=== PATIENT | male | born 1985 | race Caucasian/White ===

== ENCOUNTER 2019-01-28 12:06 | Emergency (ER) | payer SELFPAY ==
[~2019-01-28] VITALS: Ht 170.2 cm; Wt 77.3 kg
[2019-01-28 12:19] VITALS: BP 140/106
[2019-01-28] MEDS ORDERED: LIDOcaine 1% w/epiNEPHrine 1:200,000 30ml vial IM ONE (12:20)
[2019-01-28] MEDS ORDERED: TETanus/Pertussis (Acell)/Diphther VAC/PF (Tdap-Adult) 0.5ml syringe IM ONE (12:20)
[2019-01-28] MEDS ORDERED: HYDROcodone/acetaminophen 10/325mg tab PO ONE (12:20)
--- NOTE | 2019-01-28 13:09 | NUR ---
relieving RN for lunch, public works technician at bedside to irrigate wound to head, pt refusing tetanus and pain med "i hate needles and I don't well with pain medications"
[2019-01-28] MEDS ORDERED: cephalexin 250mg capsule PO ONE (14:15)
[2019-01-28] MEDS ORDERED: CEPH-572 PO (14:37)
[2019-01-28] MEDS ORDERED: ketorolac trometh inj. 60 MG/2 ML VIAL IM ONE (14:50)
[2019-01-28] MEDS ORDERED: ibuprofen tablet 400 MG TABLET PO ONE (14:55)
[2019-01-28] MEDS ORDERED: ibuprofen 200mg tablet PO ONE (15:05)
== END 2019-01-28 15:19 | disposition home or self-care (01) ==
LOC: ER 12:06
DX: S01.01XA Laceration without foreign body of scalp, initial encounter (principal); M54.2 Cervicalgia; F17.200 Nicotine dependence, unspecified, uncomplicated; Z79.899 Other long term (current) drug therapy; W20.8XXA Other cause of strike by thrown, projected or falling object, initial encounter; Y93.89 Activity, other specified; Y92.89 Other specified places as the place of occurrence of the external cause; Y99.8 Other external cause status
CPT/HCPCS: 12005; 70450; 72125; 90715; 99284; J3490; 12011

== ENCOUNTER 2019-02-07 17:32 | Emergency (ER) | payer OTHER ==
[~2019-02-07] VITALS: Ht 170.2 cm; Wt 79.1 kg
[2019-02-07 17:41] VITALS: BP 135/91
--- NOTE | 2019-02-07 17:59 | NUR ---
PATIENT AMBULATORY TO ER FAST TRACK #A WITH C/O NEEDING SUTURES REMOVED FROM [facility].
--- NOTE | 2019-02-07 18:00 | NUR ---
SUTURES REMOVED PER PROVIDER. WOUND DRY AND INTACT.
== END 2019-02-07 18:12 | disposition home or self-care (01) ==
LOC: ER 17:33
DX: S01.01XD Laceration without foreign body of scalp, subsequent encounter (principal); W20.8XXD Other cause of strike by thrown, projected or falling object, subsequent encounter
CPT/HCPCS: 99281

== ENCOUNTER 2019-10-03 09:14 | Emergency (ER) | payer BC ==
[~2019-10-03] VITALS: Ht 170.2 cm; Wt 79.5 kg
[2019-10-03 09:24] VITALS: BP 132/84
[2019-10-03] MEDS ORDERED: proparacaine 0.5% ophthalmic drops 15ml LEFTEYE ONE (09:35)
[2019-10-03] MEDS ORDERED: erythromycin ophthalmic ointment 1gm tube RIGHTEYE ONE (09:45)
[2019-10-03] MEDS ORDERED: ERYT1OIN6 RIGHTEYE (09:52)
== END 2019-10-03 10:05 | disposition home or self-care (01) ==
LOC: ER 09:15
DX: S05.01XA Injury of conjunctiva and corneal abrasion without foreign body, right eye, initial encounter (principal); W22.8XXA Striking against or struck by other objects, initial encounter; Y93.89 Activity, other specified; Y92.89 Other specified places as the place of occurrence of the external cause; Y99.9 Unspecified external cause status
CPT/HCPCS: 99283

== ENCOUNTER 2020-08-09 18:28 | Emergency (ER) | payer BC ==
[~2020-08-09] VITALS: Ht 170.2 cm; Wt 84.1 kg
[2020-08-09 18:41] VITALS: BP 156/97
[2020-08-09] MEDS ORDERED: proparacaine 0.5% ophthalmic drops 15ml EACHEYE ONE (20:00)
[2020-08-09] MEDS ORDERED: erythromycin ophthalmic ointment 1gm tube LEFTEYE ONE (20:55)
== END 2020-08-09 21:19 | disposition home or self-care (01) ==
LOC: ER 18:29
DX: S05.02XA Injury of conjunctiva and corneal abrasion without foreign body, left eye, initial encounter (principal); X58.XXXA Exposure to other specified factors, initial encounter; Y93.89 Activity, other specified; Y92.89 Other specified places as the place of occurrence of the external cause; Y99.8 Other external cause status
CPT/HCPCS: 99283

== ENCOUNTER 2021-08-18 07:02 | Emergency (ER) | payer BC, MEDICAID ==
[~2021-08-18] VITALS: Ht 172.7 cm; Wt 79.5 kg
[2021-08-18 07:06] VITALS: BP 130/79
[2021-08-18] MEDS ORDERED: proparacaine 0.5% ophthalmic drops 15ml EACHEYE ONE (08:30)
[2021-08-18] MEDS ORDERED: TOBR5DRO2 LEFTEYE (08:32)
== END 2021-08-18 08:53 | disposition home or self-care (01) ==
LOC: ER 07:03
DX: S05.02XA Injury of conjunctiva and corneal abrasion without foreign body, left eye, initial encounter (principal); Z72.89 Other problems related to lifestyle; Z79.2 Long term (current) use of antibiotics; X58.XXXA Exposure to other specified factors, initial encounter; Y93.9 Activity, unspecified; Y92.89 Other specified places as the place of occurrence of the external cause; Y99.8 Other external cause status
CPT/HCPCS: 99283

== ENCOUNTER 2023-09-08 06:33 | Emergency (ER) | payer MEDICAID ==
[~2023-09-08] VITALS: Ht 170.2 cm; Wt 71.2 kg
[~2023-09-08 06:33] MED LIST: TOBR5DRO2 LEFTEYE
[2023-09-08] MEDS ORDERED: ibuprofen tablet 400 MG TABLET PO ONE (07:50)
[2023-09-08] MEDS ORDERED: CYCL-1 PO (07:50)
[2023-09-08] MEDS ORDERED: IBUP-1985 PO (07:50)
[2023-09-08 08:04] VITALS: BP 134/78; PULSE 86; RESP 18; TEMP 97.5; O2SAT 98
== END 2023-09-08 08:17 | disposition home or self-care (01) ==
LOC: ER 06:33
DX: M54.59 Other low back pain (principal); W19.XXXA Unspecified fall, initial encounter; Y93.89 Activity, other specified; Y92.89 Other specified places as the place of occurrence of the external cause; Y99.8 Other external cause status
CPT/HCPCS: 99284

== ENCOUNTER 2023-10-18 10:22 | Emergency (ER) | payer MEDICAID ==
[~2023-10-18] VITALS: Ht 170.2 cm; Wt 77.3 kg
[~2023-10-18 10:22] MED LIST changes: +CYCL-1 PO; +IBUP-1985 PO
[2023-10-18] MEDS ORDERED: LIDOcaine 1% W/epiNEPHrine 1:100,000 20ml vial SQ ONE (10:45)
[2023-10-18] MEDS ORDERED: LIDOCAINE 1%/EPI 1:100,000 inj. 10 ML multi-dose vial SQ ONE (10:55)
[2023-10-18 12:42] VITALS: BP 124/93; PULSE 74; RESP 16; TEMP 98; O2SAT 98
[2023-10-18 12:59] LABS: HIV ANTIBODY 1&2 RAPID NON-REACTIVE (Neg)
== END 2023-10-18 12:44 | disposition home or self-care (01) ==
LOC: ER 10:23
DX: S61.412A Laceration without foreign body of left hand, initial encounter (principal); X58.XXXA Exposure to other specified factors, initial encounter; Y93.89 Activity, other specified; Y92.89 Other specified places as the place of occurrence of the external cause; Y99.8 Other external cause status
CPT/HCPCS: 12002; 36415; 86703; 99283; A6449

== ENCOUNTER 2025-02-10 16:11 | Emergency (ER) | payer MEDICAID ==
[~2025-02-10] VITALS: Ht 170.2 cm; Wt 77.8 kg
--- NOTE | 2025-02-10 17:08 | RADIOLOGY REPORT ---
CLINICAL INDICATION: HAND PAIN TECHNIQUE: Left DI HAND, COMPLETE (3VW MIN) Comparison: None FINDINGS/IMPRESSION: : There is no evidence of acute fracture or dislocation. Soft tissues are unremarkable.
[2025-02-10] MEDS: LIDOcaine 1% W/epiNEPHrine 1:100,000 20ml vial SQ ONE (18:43)
--- NOTE | 2025-02-10 18:53 | Physician Documentation ---
History of Present Illness ~ Chief Complaint: Laceration Stated Complaint: LAC ON LEFT HAND Time Seen by MD: 18:09 Primary Medical Doctor: MAIKOL HESS HPI Presents with left hand pain after her injuring his posterior aspect of his thumb and index finger on the left side when he put his finger in a port a cool of operative cooler causing a laceration. Tetanus Within 5 Years: Yes (JANUARY 2019) Medication Reconciliation Allergies: Coded Allergies: No Known Allergies (Unverified , 10/18/23) Scheduled Tobramycin Sulfate/Dexameth (Tobradex Eye Drops), 1 DROP LEFTEYE Q6H Scheduled PRN Cyclobenzaprine* (Cyclobenzaprine*), 1 TABLET PO Q8H PRN for muscle spasms Ibuprofen (Ibuprofen), 1 TAB PO Q6H PRN for pain Past Medical History Past Medical History: No Pertinent History Past Surgical History: noncontributory Alcohol Use: Occasionally Drug Use: none Lives with: Spouse Lives In: Home Occupation: employed Review of Systems All Other Systems at this time: Reviewed and Negative ROS As stated above in the HPI, otherwise all systems are reviewed and negative. Constitutional: Reports: no symptoms reported Physical Exam Vital Signs: Temperature: 98.0, Source: Temporal, Heart Rate: 62, Respiratory R ate: 16, BP: 103/43, Pulse Oximetry: 99, Weight: 77.800 Oxygen Flow Rate: 0 Physical Exam General: Alert, no apparent distress. HEENT: PERRL, EOMI, no injection, moist mucous membranes. Extremities: Normal range of motion he5 cm laceration in the posterior aspect of the webbing of the 1st and 2nd digits of the left hand. Bleeding is controlled laceration appears deep Neurologic: Oriented x4. Psychiatric: Normal mood and affect. Skin: Normal color, warm and dry. No edema, no ecchymosis. Procedures Laceration/Wound Repair Laceration : Anesthesia: Lidocaine, Lidocaine w/ Epi Prep: betadine, irrigated by physician Margins: revised Repaired: skin, subcutaneous Wound Repaired With: sutures Suture Size/Type: 4-0 Number of Superficial Sutures: 20 Tolerated Procedure Well?: yes, no complications Progress Results/Orders Results/Orders Orders - RENO SAMANIEGO NP Laceration/I&D Tray Set Up (02/10/25 ) Completed Orders - RENO SAMANIEGO NP Lidocaine 1% W/Epi 1:100,000 (Xylocaine (02/10/25 18:25) Vital Signs 02/10/25 02/10/25 16:17 19:40 Temp 98.0 98.6 Pulse 62 82 Resp 16 16 B/P (MAP) 103/43 132/82 Pulse Ox 99 99 O2 Flow Rate 0 Medical Decision Making Findings Upon further inspection after irrigating patient's wound was then there was multiple lacerations from his fan injury required careful approximation along with 20 sutures of 4-0. Patient maintained that he had no numbness tingling or decreased range of motion. He tolerated procedure well. Advised him to have the sutures removed in 7-10 days Patient refused tetanus shot Departure Disposition: HOME / SELF CARE / HOMELESS Impression: Primary Impression: Laceration Condition: Stable Discharge Instructions: Laceration Care, Adult, [id number] Additional Instructions: Hand clean and dry to avoid infection. Your sutures night, on 03/28 days Referrals: NO PRIMARY CARE PROVIDER (PCP) Education Educated: Patient Educated regarding: diagnosis Signature Scribe Signature: G Attestation: The note accurately reflects work and decisions made by me.Reno Escudero NP 02/10/25 23:00 RENO SAMANIEGO NP February 10, 2025 18:53
[2025-02-10 19:40] VITALS: BP 132/82; PULSE 82; RESP 16; TEMP 98.6; O2SAT 99
== END 2025-02-10 19:41 | disposition home or self-care (01) ==
LOC: ER 16:11
DX: S61.412A Laceration without foreign body of left hand, initial encounter (principal); Z79.899 Other long term (current) drug therapy; Z72.89 Other problems related to lifestyle; W22.8XXA Striking against or struck by other objects, initial encounter; Y93.89 Activity, other specified; Y92.89 Other specified places as the place of occurrence of the external cause; Y99.8 Other external cause status
CPT/HCPCS: 12002; 73130; 99283; A6222; A6449

== ENCOUNTER 2025-02-22 15:33 | Emergency (ER) | payer MEDICAID ==
[~2025-02-22] VITALS: Ht 170.2 cm; Wt 74.3 kg
[2025-02-22 15:33] VITALS: BP 145/94; PULSE 115; RESP 16; O2SAT 95
--- NOTE | 2025-02-22 16:54 | Physician Documentation ---
History of Present Illness ~ Chief Complaint: Wound Re-Check Stated Complaint: STICH REMOVAL Time Seen by MD: 16:25 Primary Medical Doctor: [facility] Source: patient Mode of Arrival: POV Exam Limitations: no limitations HPI 39-year-old right-handed male here with wound on left hand he states that he had sutures placed here 14 days ago but recently the area where it was closed with sutures ripped open. No bleeding. Minimal pain. Tetanus within 5 years?: Yes (JANUARY 2019) Medication Reconciliation Allergies: Coded Allergies: No Known Allergies (Unverified , 10/18/23) Scheduled Tobramycin Sulfate/Dexameth (Tobradex Eye Drops), 1 DROP LEFTEYE Q6H Scheduled PRN Cyclobenzaprine* (Cyclobenzaprine*), 1 TABLET PO Q8H PRN for muscle spasms Ibuprofen (Ibuprofen), 1 TAB PO Q6H PRN for pain Past Medical History Past Medical History: No Pertinent History Past Surgical History: noncontributory Alcohol Use: Occasionally Drug Use: none Lives with: Spouse Lives In: Home Occupation: employed Review of Systems All Other Systems at this time: Reviewed and Negative Physical Exam Vital Signs: Temperature: 99.1, Source: Oral, Heart Rate: 115, Respiratory Rate: 16, BP: 145/94, Pulse Oximetry: 95, Weight: 74.300 Oxygen Flow Rate: 0 Physical Exam General Appearance: Alert, WD/WN. NAD. HEENT: NCAT, PERRL, EOMI. Neck: Supple, trachea midline. Cardiovascular: RRR. No m/r/g. Lungs: Breathing unlabored Extremities: Normal inspection. No edema. Skin: Warm/dry, normal color. Left hand palmar surface at the distal 2nd metacarpal there is a incision which is partially closed with sutures and partially dehisced, wound bed is white light pink not beefy red, no bleeding. Neurological: Alert and oriented x4, normal gait. Psychiatric: Affect congruent with mood. Procedures Procedures Sutures removed from left hand Left hand was then dressed with a simple dressing in place in a velcro thumb sp ica splint to minimize the abduction of the thumb to try to minimize the tension on the wound Progress Results/Orders Results/Orders Orders - EVANS YOUNGBLOOD General Nursing Order (02/22/25 16:34) Vital Signs 02/22/25 02/22/25 15:33 17:41 Temp 99.1 99.1 Pulse 115 Resp 16 B/P (MAP) 145/94 Pulse Ox 95 O2 Flow Rate 0 Medical Decision Making Differential Dx:Considerations: Include: Abscess, Cellulitis, Dressing change, Healing wound Departure Time of Disposition: 18:45 Disposition: 01 HOME / SELF CARE / HOMELESS Impression: Primary Impression: Wound Condition: Stable Discharge Instructions: Wound Care, Adult Additional Instructions: WOUND WILL NEED TO HEAL BY SECONDARY INTENTION I AM GOING TO SEND TO YOU TO OUR WOUND CLINIC TO MONITOR AND TREAT THE WOUND MOVING FORWARD KEEP CLEAN WEAR VELCRO SPLINT IF THIS HELPS FROM FURTHER RIPPING OPEN THE WOUND Referrals: WOUND [facility], [facility] Education Educated: Patient Educated regarding: diagnosis, treatment, need for follow up Signature Scribe Signature: x Attestation: EVANS Metz Feb 22, 2025 16:54
[2025-02-22 17:41] VITALS: TEMP 99.1
== END 2025-02-22 17:29 | disposition home or self-care (01) ==
LOC: ER 15:33
DX: S61.412D Laceration without foreign body of left hand, subsequent encounter (principal); Z72.89 Other problems related to lifestyle; Z79.899 Other long term (current) drug therapy; X58.XXXD Exposure to other specified factors, subsequent encounter
CPT/HCPCS: 29125; 99283; J7030; A6449